=== PATIENT | female | born 1990 | race Caucasian/White ===

== ENCOUNTER → 2018-07-23 09:47 | Outpatient (CLI) | payer OTHER, SELFPAY ==
--- NOTE | 2018-07-23 | DI.US.S_ITS ---
PROCEDURE: US OB >= 14 WEEKS FETUS INDICATIONS: ULTRASOUND 14 WK GESTATION OUTSIDE/PRIOR DATING DATA: Last menstrual period (LMP): Not provided. LMP-based estimated date of delivery (SYBIL): N./A.. First dating scan (date and location): 07/23/18. Estimated date of delivery (SYBIL) from first dating scan: 12/13/18. TECHNIQUE: Real-time scanning was performed of the fetuses, with image documentation and biometric measurements. Endovaginal scanning: No COMPARISON: [facility], [place], OB TWINS < 14 WEEKS, 07/12/2018, 9:20. FINDINGS: General: An intrauterine dichorionic-diamniotic twin is present, as evidenced by separate placentas, differing sexes, or an intervening membrane of greater than 2 mm. Amniotic fluid index (composite): Not obtained. Maternal cervical canal: 5.8 cm long. Normal lower limit is 2.5 cm. FETUS A: Fetus is vertex in presentation. Largest amniotic fluid pocket: 5.8 cm; normal range is 2-8 cm. Placental position is anterior, without previa. heart rate: 144 beats per minute. biometrics: Biparietal diameter: 20 weeks 1 day Head circumference: 20 weeks 0 days Abdominal circumference: 20 weeks 1 day Femur length: 19 weeks 1 day Estimated gestational age from initial scan: not applicable. Composite gestational age from present scan: 19 weeks 5 days Estimated weight and percentile: 307 g; 28 percentile Measurement variability for biometric dating: +/- 7 days from 14 weeks to 15 weeks 6 days gestation, +/- 10 days from 16 weeks to 21 weeks 6 days gestation, +/- 2 weeks from 22 weeks to 27 weeks 6 days gestation, +/- 3 weeks for 28 weeks gestation or later. weight reference: 4500 g or EFW >90/95% is considered macrosomia or large for gestational age. EFW <10% is small for gestational age. EFW 5% or less is considered intra-uterine growth restriction. Anatomic survey: Neuro: Ventricles are normal at less than 10 mm. Cisterna magna is normal at 3-11 mm. Cerebellum is normal in size and morphology. Nuchal skin fold: Normal at less than 6 mm between 14 and 21 weeks gestational age. Face: Nose and lips, facial profile are normal. Spine: No evidence for spina bifida. Heart: 4 chambered heart is present, with normal ventricular outflow tracts. Left ventricular intracardiac focus. Diaphragm: Diaphragm is intact. Stomach: Left-sided stomach is present. Kidneys: Right renal pelvis measures 5 mm and normal left kidney. Normal ranges are less than 5 mm in 2nd trimester, less than 7 mm in 3rd trimester. Cord: 3 vessel cord has orthotopic insertion. Bladder: Normal in size. Extremities: All 4 extremities are visualized. FETUS B: Fetus is transverse position. Largest amniotic fluid pocket: 5.3 cm; normal range is 2-8 cm. Placental position is posterior, without previa. heart rate: 141 beats per minute. biometrics: Biparietal diameter: 19 weeks 5 days Head circumference: 20 weeks Abdominal circumference: 19 weeks 5 days Femur length: 19 weeks 2 days Estimated gestational age from initial scan: not applicable. Composite gestational age from present scan: 19 weeks 4 days Estimated weight and percentile: 90 g; 22nd percentile Measurement variability for biometric dating: +/- 7 days from 14 weeks to 15 weeks 6 days gestation, +/- 10 days from 16 weeks to 21 weeks 6 days gestation, +/- 2 weeks from 22 weeks to 27 weeks 6 days gestation, +/- 3 weeks for 28 weeks gestation or later. weight reference: 4500 g or EFW >90/95% is considered macrosomia or large for gestational age. EFW <10% is small for gestational age. EFW 5% or less is considered intra-uterine growth restriction. Anatomic survey: Neuro: Ventricles are normal at less than 10 mm. Cisterna magna is normal at 3-11 mm. Cerebellum is normal in size and morphology. Nuchal skin fold: Normal at less than 6 mm between 14 and 21 weeks gestational age. Face: Not well-seen. Spine: No evidence for spina bifida. Heart: 4 chambered heart is present, with normal ventricular outflow tracts. Diaphragm: Diaphragm is intact. Stomach: Left-sided stomach is present. Kidneys: No hydronephrosis. Normal ranges are less than 5 mm in 2nd trimester, less than 7 mm in 3rd trimester. Cord: 3 vessel cord has orthotopic insertion. Marginal placental cord insertion 1 cm from the placental edge Bladder: Normal in size. Extremities: All 4 extremities are visualized. IMPRESSION: 1. Diamniotic dichorionic living twin with composite age for fetus A of 19 weeks 5 days and 19 weeks 4 days for fetus B corresponding to ultrasound SYBIL of 12/13/18. 2. Echogenic intracardiac focus involving fetus A: 1.4-1.8 fold likelihood of Down syndrome. If isolated finding, consider aneuploidy screening with cell-free DNA. If aneuploidy screen is negative, no further evaluation needed. Otherwise, there is mild pyelectasis of the right renal pelvis involving fetus A and followup is recommended. 3. face not well visualized for fetus B and marginal cord insertion site is noted. Followup recommended. 1. Dictated by: Yomi CHOUDHURY Interpreted: Nedra Pagan MD on 07/24/2018 at 13:44 Approved by: Nedra Pagan M.D. on 07/24/2018 at 17:20
== END ==
PROVIDERS: Visit Provider Specialist
DX: O30.042 Twin pregnancy, dichorionic/diamniotic, second trimester (principal); Z3A.19 19 weeks gestation of pregnancy
CPT/HCPCS: 76811; 76812

== ENCOUNTER → 2018-09-03 09:40 | Outpatient (CLI) | payer OTHER, SELFPAY ==
[2018-09-03 11:54] LABS: Hematocrit 34.9 % (36-46); Hemoglobin 12.2 g/dL (12.0-16.0)
[2018-09-03 12:19] LABS: GTT (PREG) 1 Hour PP 50gm Dose 103 mg/dL (76-139)
[2018-09-05 21:54] LABS: Hep C Virus Ab w/Reflex Quant NEGATIVE s/c (NEGATIVE)
== END ==
PROVIDERS: Visit Provider Specialist
DX: Z34.02 Encounter for supervision of normal first pregnancy, second trimester (principal); Z3A.26 26 weeks gestation of pregnancy
CPT/HCPCS: 36415; 82950; 85014; 85018; 86787; 86803

== ENCOUNTER 2018-10-19 14:54 | Outpatient (CLI) | payer OTHER, SELFPAY ==
--- NOTE | 2018-10-19 15:54 | PM.OBTRLD ---
Visit Information Visit Information Date of evaluation: 10/19/18 Reason for Evaluation: Yes non-stress test non-stress test reason: other (Thirty-two week twin gestation) PFSH Social History Smoking Status: Never smoker Social History Smoking Status: Never smoker Evaluation Evaluation Baseline heart rate: 140 (both) Variability: Moderate (11-25) (both) monitor accelerations: Present (both) monitor decelerations: Absent (both) Uterine Contraction Intensity: Mild Category of Tracing: I Cervical dilation (cm): 0 Cervical effacement (%): 0 station: -4 Diagnosis, Plan/Disposition Final Diagnosis (1) Dichorionic diamniotic twin in third trimester: Current Visit: Yes Status: Acute Plan/Disposition Plan: Weekly biophysical profiles OB Disposition: home
== END 2018-10-19 15:55 | disposition home or self-care (01) ==
LOC: LABOR 15:25 → OB 10-24 13:59
PROVIDERS: Visit Provider Specialist
DX: O30.003 Twin pregnancy, unspecified number of placenta and unspecified number of amniotic sacs, third trimester (principal); O30.043 Twin pregnancy, dichorionic/diamniotic, third trimester; Z3A.32 32 weeks gestation of pregnancy
CPT/HCPCS: 59025; G0378; G0379

== ENCOUNTER 2018-10-26 14:03 | Outpatient (CLI) | payer OTHER, SELFPAY ==
--- NOTE | 2018-10-26 15:11 | PM.OBTRLD ---
Visit Information Visit Information Date of evaluation: 10/26/18 Primary OB Provider: Flower Quiñones Reason for Evaluation: Yes non-stress test non-stress test reason: other (twins) [facility] Social History Smoking Status: Never smoker Social History Smoking Status: Never smoker Evaluation Evaluation Baseline heart rate: 145 (both) Variability: Moderate (11-25) (both) monitor accelerations: Present (both) monitor decelerations: Absent (both) Contraction Frequency (minutes): 0 Diagnosis, Plan/Disposition Final Diagnosis (1) Dichorionic diamniotic twin in third trimester: Current Visit: Yes Status: Acute (2) 33 weeks gestation of : Current Visit: Yes Status: Acute Plan/Disposition Plan: Continue weekly nonstress tests and ultrasounds OB Disposition: home
--- NOTE | 2018-10-26 15:14 | P.TNLD_ITS ---
Visit Information Visit Information Date of evaluation: 10/26/18 Primary OB Provider: Flower Quiñones Reason for Evaluation: Yes non-stress test non-stress test reason: other (twins) COUNTS INCLUDE 234 BEDS AT THE [facility] Social History Smoking Status: Never smoker Social History Smoking Status: Never smoker Evaluation Evaluation Baseline heart rate: 145 (both) Variability: Moderate (11-25) (both) monitor accelerations: Present (both) monitor decelerations: Absent (both) Contraction Frequency (minutes): 0 Diagnosis, Plan/Disposition Final Diagnosis (1) Dichorionic diamniotic twin in third trimester: Current Visit: Yes Status: Acute (2) 33 weeks gestation of : Current Visit: Yes Status: Acute Plan/Disposition Plan: Continue weekly nonstress tests and ultrasounds OB Disposition: home
== END 2018-10-26 15:16 | disposition home or self-care (01) ==
LOC: LABOR 14:22 → OB 10-30 08:21
PROVIDERS: Visit Provider Specialist
DX: O30.043 Twin pregnancy, dichorionic/diamniotic, third trimester (principal); Z3A.33 33 weeks gestation of pregnancy
CPT/HCPCS: 59025; G0378; G0379

== ENCOUNTER 2018-11-02 09:35 | Outpatient (CLI) | payer OTHER, SELFPAY ==
--- NOTE | 2018-11-02 10:21 | P.TNLD_ITS ---
Visit Information Visit Information Date of evaluation: 11/02/18 Primary OB Provider: Flower Quiñones Reason for Evaluation: Yes non-stress test non-stress test reason: other (twins 34 weeks) [facility] Social History Smoking Status: Never smoker Social History Smoking Status: Never smoker Evaluation Evaluation Baseline heart rate: 130 (140) Variability: Moderate (11-25) (both) monitor accelerations: Present (both) monitor decelerations: Absent (both) Contraction Frequency (minutes): 0 Category of Tracing: I (both) Diagnosis, Plan/Disposition Final Diagnosis (1) Dichorionic diamniotic twin in third trimester: Current Visit: No Status: Acute (2) 34 weeks gestation of : Current Visit: Yes Status: Acute Plan/Disposition Plan: Weekly visits and nonstress tests OB Disposition: home
== END 2018-11-02 10:25 | disposition home or self-care (01) ==
LOC: LABOR 09:44 → OB 11-06 13:07
PROVIDERS: Visit Provider Specialist
DX: O30.043 Twin pregnancy, dichorionic/diamniotic, third trimester (principal); Z3A.34 34 weeks gestation of pregnancy
CPT/HCPCS: 59025; G0378; G0379

== ENCOUNTER 2018-11-09 13:20 | Observation (INO) | payer OTHER, SELFPAY ==
--- NOTE | 2018-11-09 14:29 | PM.OBTRLD ---
Visit Information Visit Information Date of evaluation: 11/09/18 Primary OB Provider: Flower Quiñones Reason for Evaluation: Yes non-stress test non-stress test reason: hypertension/pre-eclampsia Vital Signs Vital Signs: Blood pressure 139/90 [facility] Social History Smoking Status: Never smoker Social History Smoking Status: Never smoker Evaluation Evaluation Baseline heart rate: 125 (Twin B 140) Variability: Moderate (11-25) (both) monitor accelerations: Present (both) monitor decelerations: Absent (both) Contraction Frequency (minutes): 5 Uterine Contraction Intensity: Mild Category of Tracing: I (both) Diagnosis, Plan/Disposition Final Diagnosis (1) Dichorionic diamniotic twin in third trimester: Current Visit: No Status: Acute (2) 35 weeks gestation of : Current Visit: Yes Status: Acute (3) Hypertension affecting in third trimester: Current Visit: Yes Status: Acute Plan/Disposition Plan: We will check PIH labs OB Disposition: other (Patient sent office for office visit)
--- NOTE | 2018-11-09 14:32 | P.TNLD_ITS ---
Visit Information Visit Information Date of evaluation: 11/09/18 Primary OB Provider: Flower Quiñones Reason for Evaluation: Yes non-stress test non-stress test reason: hypertension/pre-eclampsia Vital Signs Vital Signs: Blood pressure 139/90 [facility] Social History Smoking Status: Never smoker Social History Smoking Status: Never smoker Evaluation Evaluation Baseline heart rate: 125 (Twin B 140) Variability: Moderate (11-25) (both) monitor accelerations: Present (both) monitor decelerations: Absent (both) Contraction Frequency (minutes): 5 Uterine Contraction Intensity: Mild Category of Tracing: I (both) Diagnosis, Plan/Disposition Final Diagnosis (1) Dichorionic diamniotic twin in third trimester: Current Visit: No Status: Acute (2) 35 weeks gestation of : Current Visit: Yes Status: Acute (3) Hypertension affecting in third trimester: Current Visit: Yes Status: Acute Plan/Disposition Plan: We will check PIH labs OB Disposition: other (Patient sent office for office visit)
== END 2018-11-09 14:05 | disposition home or self-care (01) ==
PROVIDERS: Admitting Provider Specialist; PCP Specialist; Visit Provider Specialist
DX: O30.043 Twin pregnancy, dichorionic/diamniotic, third trimester (principal); Z3A.35 35 weeks gestation of pregnancy; O16.3 Unspecified maternal hypertension, third trimester
CPT/HCPCS: 59025; G0378; G0379

== ENCOUNTER → 2018-11-09 14:43 | Outpatient (CLI) | payer OTHER, SELFPAY ==
[2018-11-10 14:39] LABS: Strep Grp B PCR POS for Grp B Strep
== END ==
PROVIDERS: PCP Specialist; Visit Provider Specialist
DX: O30.043 Twin pregnancy, dichorionic/diamniotic, third trimester (principal); Z3A.35 35 weeks gestation of pregnancy; O16.3 Unspecified maternal hypertension, third trimester
CPT/HCPCS: 87653

== ENCOUNTER → 2018-11-09 15:00 | Outpatient (CLI) | payer OTHER, SELFPAY ==
[2018-11-09 15:35] LABS: Add Manual Diff / Slide Review NO; Basophils Absolute Auto 0 /uL (0-100); Basophils Percent Auto 0.4 % (0-2); Eosinophils Absolute Auto 100 /uL (0-450); Eosinophils Percent Auto 0.6 % (2-4); Hematocrit 33.5 % (36-46); Hemoglobin 11.2 g/dL (12.0-16.0); Lymphocytes Absolute Auto 2700 /uL (1100-4500); Lymphocytes Percent Auto 26.4 % (25-40); Mean Corpuscular HGB Conc 33.5 % (30-36); Mean Corpuscular Hemoglobin 27.7 PG (26-34); Mean Corpuscular Volume 82.7 fL (80-100); Monocytes Absolute Auto 800 /uL (0-900); Monocytes Percent Auto 7.7 % (3-14); Neutrophils Absolute Auto 6700 /uL (1500-7000); Neutrophils Percent Auto 64.9 % (50-75); Platelet Count 114 X10^3/uL (150-400); Red Blood Cell Count 4.05 X10^6/uL (4.0-5.2); Red Cell Distribution Width 14.8 % (11.6-14.8); White Blood Cell Count 10.4 X10^3/uL (4.5-11.0)
[2018-11-09 15:42] LABS: Alanine Aminotransferase 17 IU/L (9-52); Aspartate Aminotransferase 30 IU/L (14-36); BUN Creatinine Ratio 21.3 (6-22); Blood Urea Nitrogen 17 mg/dL (7-17); Estimated Glomerular Filt Rate > 60.0 mL/min (>60); Uric Acid 7.9 mg/dL (2.5-6.2)
== END ==
PROVIDERS: PCP Specialist; Visit Provider Specialist
DX: O16.3 Unspecified maternal hypertension, third trimester (principal)
CPT/HCPCS: 36415; 82565; 84450; 84460; 84520; 84550; 85025

== ENCOUNTER 2018-11-09 18:03 | Inpatient (IN) | payer OTHER, SELFPAY ==
--- NOTE | 2018-11-09 18:29 | PM.OBHP.1 ---
OB HPI Date/Time Date of admission: 11/09/18 Date Patient Seen: 11/09/18 Time Patient Seen: 18:29 History of Present Condition Chief complaint: [id number] : 1 Para: 0 Estimated Date of Delivery: 12/10/18 Estimated Gestational Age (weeks): 35 Narrative: Mary Jo Ahuja is a 28 year old female with dichorionic diamniotic twins in breech/breech presentation developing preeclampsia Indications Operative indications ( section): multiple gestation Other reason(s) for admission: Mild preeclampsia History of Present care: good care, initiated at week # (13), number of visits (12) and pounds weight gain (66) Dating criteria: other (Intrauterine insemination) Abnormal ultrasound findings: Echogenic intracardiac focus fetus A with mild pyelectasis on the right Obstetrical complications: preeclampsia Medical complications: none Preadmission Labs Blood type: O (+) positive -: Antibody screen: negative, HBsAG: negative, HIV: negative and RPR/VDLR: negative -: Chlamydia screen: not detected and Gonorrhea screen: not detected -: Rubella: immune and Varicella: immune HCAB: negative PAP: Normal 1 hr GTT: 103 Evaluation Evaluation Baseline heart rate: 125 (140 twin B) Variability: Moderate (11-25) (both) monitor accelerations: Present (both) monitor decelerations: Absent (both) Uterine Contraction Intensity: Mild Category of Tracing: I Cervical dilation (cm): 0 Cervical effacement (%): 0 station: -3 PFS Social History Smoking Status: Never smoker Social History Smoking Status: Never smoker Meds Home Medications Medication Instructions Recorded Confirmed Type 1 tab PO DAILY 05/29/18 05/29/18 History vitamin,calcium,zdhlscal-vceh-pfktc acid tablet breast pump #1 each 10/12/18 Rx Allergies Allergy/AdvReac Type Severity Reaction Status Date / Time No Known Drug Allergies Allergy Unverified 05/29/18 15:38 Review of Systems Review of Systems Patient denies headaches, scotomata, epigastric pain. All systems reviewed & are unremarkable except as noted in HPI and below Exam Vital Signs (past 8 hours): 150/92 Narrative Exam Narrative: HEENT exam within normal limits. Lungs are clear to auscultation and percussion. Heart is regular rate and rhythm no S3-S4 or murmurs. Abdomen is soft, nontender. Babies are breech/breech. Extremities with +3 edema and DTRs are brisk with a couple beats of clonus. Objective Labs Labs: Urine dip 3+ proteinuria Assessment and Plan Assessment and Plan Assessment and Plan narrative: 35 4/7week dichorionic/diamniotic twin gestation in breech/breech presentation with beginnings of preeclampsia decision was made to proceed with section.
--- NOTE | 2018-11-09 18:41 | P.HPOB_ITS ---
OB HPI Date/Time Date of admission: 11/09/18 Date Patient Seen: 11/09/18 Time Patient Seen: 18:29 History of Present Condition Chief complaint: [id number] : 1 Para: 0 Estimated Date of Delivery: 12/10/18 Estimated Gestational Age (weeks): 35 Narrative: Mary Jo Ahuja is a 28 year old female with dichorionic diamniotic twins in breech/breech presentation developing preeclampsia Indications Operative indications ( section): multiple gestation Other reason(s) for admission: Mild preeclampsia History of Present care: good care, initiated at week # (13), number of visits (12) and pounds weight gain (66) Dating criteria: other (Intrauterine insemination) Abnormal ultrasound findings: Echogenic intracardiac focus fetus A with mild pyelectasis on the right Obstetrical complications: preeclampsia Medical complications: none Preadmission Labs Blood type: O (+) positive -: Antibody screen: negative, HBsAG: negative, HIV: negative and RPR/VDLR: negative -: Chlamydia screen: not detected and Gonorrhea screen: not detected -: Rubella: immune and Varicella: immune HCAB: negative PAP: Normal 1 hr GTT: 103 Evaluation Evaluation Baseline heart rate: 125 (140 twin B) Variability: Moderate (11-25) (both) monitor accelerations: Present (both) monitor decelerations: Absent (both) Uterine Contraction Intensity: Mild Category of Tracing: I Cervical dilation (cm): 0 Cervical effacement (%): 0 station: -3 PFS Social History Smoking Status: Never smoker Social History Smoking Status: Never smoker Meds Home Medications Medication Instructions Recorded Confirmed Type 1 tab PO DAILY 05/29/18 05/29/18 History vitamin,calcium,tqzagogx-hevk-bgliv acid tablet breast pump #1 each 10/12/18 Rx Allergies Allergy/AdvReac Type Severity Reaction Status Date / Time No Known Drug Allergies Allergy Unverified 05/29/18 15:38 Review of Systems Review of Systems Patient denies headaches, scotomata, epigastric pain. All systems reviewed & are unremarkable except as noted in HPI and below Exam Vital Signs (past 8 hours): 150/92 Narrative Exam Narrative: HEENT exam within normal limits. Lungs are clear to auscultation and percussion. Heart is regular rate and rhythm no S3-S4 or murmurs. Abdomen is soft, nontender. Babies are breech/breech. Extremities with +3 edema and DTRs are brisk with a couple beats of clonus. Objective Labs Labs: Urine dip 3+ proteinuria Assessment and Plan Assessment and Plan Assessment and Plan narrative: 35 4/7week dichorionic/diamniotic twin gestation in breech/breech presentation with beginnings of preeclampsia decision was made to proceed with section.
--- NOTE | 2018-11-09 18:51 | PM.PREOP ---
Pre-operative Note Interval Note History & Physical reviewed/Exam performed by Physician: Yes Changes to H&P: No
[2018-11-09] MEDS: LACTATED RINGERS 1,000 ML 100 ML IV ×3 (18:52→22:39)
[2018-11-09] MEDS: CITRIC ACID/SODIUM CITRATE 15 ML SOLUTION 30 ML PO (18:52)
--- NOTE | 2018-11-09 19:01 | SUR.OPER ---
Supine on Padded OR bed, head on pillow, safety belt at thigh, arms secured on padded arm boards at <90 degrees abduction. Bump under right buttock. Legs uncrossed with pillow under knees, gel pad to heels, tape over blanket to lower legs.
[2018-11-09 19:11] VITALS: BP 133/85
[2018-11-09] MEDS: CEFAZOLIN 2 GM/100 ML FROZ.PIGGY IV (19:20)
[2018-11-09] MEDS: FAMOTIDINE 20 MG/50 ML PIGGYBACK 200 MG IV (19:30)
--- NOTE | 2018-11-09 19:52 | SUR.OPER ---
FHT FOR BABY A 123 AFTER SPINAL, BABY B 127. VIABLE BABY A BORN AT 1937, VIABLE BABY B BORN AT 1937
[2018-11-09 20:15] VITALS: BP 189/124; PULSE 91; RESP 15; TEMP 36.4; O2SAT 97
[2018-11-09 20:20] VITALS: BP 106/76; PULSE 87; RESP 15; TEMP 36.4; O2SAT 99
[2018-11-09 20:25] VITALS: BP 106/78; PULSE 88; RESP 14; TEMP 36.4; O2SAT 98
--- NOTE | 2018-11-09 20:28 | P.OP_ITS ---
Operative Date/Time/Diagnoses Date of procedure: 11/09/18 Time of procedure: 20:21 Pre-op diagnosis: 35w4d twin gestation in breech breech presentation with preeclampsia Post-op diagnosis: same Procedure & Clinicians Procedure: Primary low-transverse section Same procedure as scheduled: Yes Indications: Breech/breech twins with preeclampsia at 35 w4d Surgeon: Flower Quiñones Round Up Ring Hand: Binh Lockwood Yes if Unassisted: No Anesthesia Type: Spinal Operative Notes Findings: Viable male infants, baby a Apgars 8 and 8 weighing 5 lb 4.7 oz, baby B Apgars 8 and 8 weighing 4 lb 11.8 oz, normal tubes, slightly enlarged multi- cystic ovaries bilaterally, normal uterus Closure Type: primary Specimen(s): none sent Applied: catheter (Edouard) Estimated Blood Loss (mL): 350 Blood products transfused: none Procedure in detail: The patient was brought to the operating room where she underwent a spinal for anesthesia. She was placed in a supine position with a left lateral tilt. A Edouard catheter was placed. Pulsatile stockings were placed and functional throughout the case. 2 g of Ancef were given IV prior to the incision. Warming was in place. The patient was prepped and draped in usual sterile fashion. A low transverse incision was made with a scalpel and the incision was carried down to the fascial layer which was incised transversely with scissors. The midline attachments are superiorly and inferiorly. Some bleeding was controlled Bovie. The rectus muscles were in the midline and the peritoneal incision was made with no damage to internal structures. The peritoneum was incised and superiorly and inferiorly. Bladder blade was placed and a bladder flap was developed and the bladder held away from the lower uterine segment. An incision was made in the uterus with the scalpel and the incision was extended with stretching. The feet of twin a were grasped and the baby was delivered and bulb suction for clear fluid. The 2nd amniotic fluid sac was ruptured and the feet were grasped and the baby delivered. The infant was bulb suctioned for clear fluid and handed off to the warmer. Cord blood was collected. The placentas delivered spontaneously with traction. The uterus was cleaned with clean laps. The uterine incision was closed in 2 layers of 0 chromic suture the first a running locking layer the second an imbricating layer. The bladder peritoneum was repaired with 2-0 Polysorb suture. The gutters were cleaned of any remaining fluids and ovaries and tubes were observed to be normal. Adequate hemostasis was noted. The perineum was closed with 2-0 Polysorb suture. The fascia layer was closed with 0 Polysorb suture with 2 stitches. The incision was irrigated and adequate hemostasis noted. The incision was closed with interrupted 3-0 Polysorb sutures and then a subcuticular stitch of 4-0 Polysorb suture. Steri-Strips were placed. The uterus was massaged to remove any clots. The patient went to recovery room in good condition. Counts of instruments and sponges were correct. Complications: none Condition: stable Disposition: Acute Care ( Center) Plan for aftercare: Routine post section care with close monitoring for worsening preeclampsia
[2018-11-09] MEDS: ACETAMINOPHEN IV 1,000 MG/100 ML VIAL 400 MG IV (20:29)
[2018-11-09 20:35] VITALS: BP 115/80; PULSE 84; RESP 14; TEMP 36.4; O2SAT 99
[2018-11-09] MEDS: miSOPROStol 200 MCG TABLET 800 MCG PR (21:20)
[2018-11-09] MEDS: CARBOPROST 250 MCG/ML AMPUL IM (21:20)
[2018-11-10] MEDS: KETOROLAC 30 MG/ML VIAL IV ×3 (02:00→14:35)
[2018-11-10 05:22] LABS: Aspartate Aminotransferase 48 IU/L (14-36); BUN Creatinine Ratio 18.8 (6-22); Blood Urea Nitrogen 15 mg/dL (7-17); Estimated Glomerular Filt Rate > 60.0 mL/min (>60)
[2018-11-10 05:26] LABS: Basophils Absolute Auto 100 /uL (0-100); Basophils Percent Auto 0.4 % (0-2); Eosinophils Absolute Auto 0 /uL (0-450); Eosinophils Percent Auto 0.1 % (2-4); Hematocrit 28.1 % (36-46); Hemoglobin 9.1 g/dL (12.0-16.0); Lymphocytes Absolute Auto 2300 /uL (1100-4500); Lymphocytes Percent Auto 15.2 % (25-40); Mean Corpuscular HGB Conc 32.6 % (30-36); Mean Corpuscular Hemoglobin 27.1 PG (26-34); Mean Corpuscular Volume 83.2 fL (80-100); Monocytes Absolute Auto 1300 /uL (0-900); Monocytes Percent Auto 8.8 % (3-14); Neutrophils Absolute Auto 11200 /uL (1500-7000); Neutrophils Percent Auto 75.5 % (50-75); Platelet Count 105 X10^3/uL (150-400); Red Blood Cell Count 3.37 X10^6/uL (4.0-5.2); Red Cell Distribution Width 14.6 % (11.6-14.8); White Blood Cell Count 14.8 X10^3/uL (4.5-11.0)
[2018-11-10 05:47] LABS: Add Manual Diff / Slide Review SLIDE REVIEW
[2018-11-10 06:28] LABS: Polychromasia 1+
[2018-11-10 08:04] VITALS: TEMP 36.8
[2018-11-10] MEDS: DOCUSATE 250 MG CAPSULE PO (08:06)
[2018-11-10] MEDS: FERROUS GLUCONATE 324 MG TABLET PO (08:06)
[2018-11-10] MEDS: PRENATAL VIT,CALC/IRON/FOLIC 1 TABLET 1 TAB PO (08:06)
--- NOTE | 2018-11-10 10:19 | PM.OBPN.1 ---
Subjective - OB Patient comments: no complaints baby status: doing well feeding status: exclusively breast feeding Date Patient Seen: 11/10/18 Time Patient Seen: 10:20 Interval history: Patient is little over 12 hours post section for twin gestation breech/breech presentation and mild preeclampsia. Patient denies any headaches or scotomata and no epigastric pain. Breast-feeding is going well. She has not tried to ambulate yet. Exam Vital Signs (past 8 hours): Blood pressure 129/85, pulse of 88, temperature 99.6?- 11/10/18 08:04 Temperature 98.2 F Oxygen Delivery Method Room Air Narrative Exam Narrative: Abdomen is soft, appropriately tender. Uterus is firm, at U, appropriately tender. Dressing is clean, dry, intact. Lochia is appropriate. Extremities continue to have increased edema and patient has brisk DTRs. Objective Labs Result Diagrams: 11/10/18 04:38 11/10/18 04:38 Labs: Laboratory Results - last 24 hr 11/09/18 11/10/18 11/10/18 15:17 04:38 04:38 WBC 14.8 H RBC 3.37 L Hgb 9.1 L Hct 28.1 L MCV 83.2 MCH 27.1 MCHC 32.6 RDW 14.6 Plt Count 105 L Neut % (Auto) 75.5 H Lymph % (Auto) 15.2 L [place] % (Auto) 8.8 Eos % (Auto) 0.1 L Baso % (Auto) 0.4 Neut # (Auto) 58942 H Lymph # (Auto) 2300 [place] # (Auto) 1300 H Eos # (Auto) 0 Baso # (Auto) 100 Plt Morphology Comment . RBC Morphology See below Polychromasia 1+ H BUN 15 Creatinine 0.80 Estimated GFR > 60.0 BUN/Creatinine Ratio 18.8 AST 48 H Blood Type O Positive Antibody Screen Negative Assessment & Plan (1) Delivery by section for breech presentation: Problem details: Patient is doing well post section routine post section care Status: Acute Current Visit: Yes (2) Pre-eclampsia affecting childbirth: Status: Acute Assessment and plan: Patient is doing well. She will be monitored for improvement of her preeclampsia symptoms. Otherwise routine post section care Current Visit: Yes Plan day: 1 plan OB: routine postop care Time Spent With Patient Total time spent is greater than 50% in coordination of care (as documented) at patient's floor/unit and/or counseling patient: less than 15 minutes
[2018-11-10 11:35] VITALS: TEMP 36.9
[2018-11-10] MEDS: OXYCODONE/ACETAMINOPHEN 5/325 TABLET 2 TAB PO (11:35)
[2018-11-10 14:35] VITALS: TEMP 36.9
[2018-11-10] MEDS: IBUPROFEN 600 MG TABLET PO (19:55)
[2018-11-11] MEDS: OXYCODONE/ACETAMINOPHEN 5/325 TABLET 2 TAB PO ×4 (01:45→19:41)
[2018-11-11] MEDS: IBUPROFEN 600 MG TABLET PO ×4 (01:46→21:51)
[2018-11-11 05:28] LABS: Add Manual Diff / Slide Review NO; Basophils Absolute Auto 100 /uL (0-100); Basophils Percent Auto 0.4 % (0-2); Eosinophils Absolute Auto 0 /uL (0-450); Eosinophils Percent Auto 0.3 % (2-4); Hematocrit 25.4 % (36-46); Hemoglobin 8.6 g/dL (12.0-16.0); Lymphocytes Absolute Auto 2300 /uL (1100-4500); Lymphocytes Percent Auto 15.6 % (25-40); Mean Corpuscular HGB Conc 33.7 % (30-36); Mean Corpuscular Hemoglobin 27.5 PG (26-34); Mean Corpuscular Volume 81.6 fL (80-100); Monocytes Absolute Auto 900 /uL (0-900); Monocytes Percent Auto 6.4 % (3-14); Neutrophils Absolute Auto 11200 /uL (1500-7000); Neutrophils Percent Auto 77.3 % (50-75); Platelet Count 136 X10^3/uL (150-400); Red Blood Cell Count 3.11 X10^6/uL (4.0-5.2); Red Cell Distribution Width 15.1 % (11.6-14.8); White Blood Cell Count 14.5 X10^3/uL (4.5-11.0)
[2018-11-11 05:39] LABS: Aspartate Aminotransferase 56 IU/L (14-36)
[2018-11-11] MEDS: FERROUS GLUCONATE 324 MG TABLET PO (08:40)
[2018-11-11] MEDS: PRENATAL VIT,CALC/IRON/FOLIC 1 TABLET 1 TAB PO (08:40)
--- NOTE | 2018-11-11 13:28 | PM.OBPN.1 ---
Subjective - OB Patient comments: no complaints, pain well controlled, tolerating diet and flatus present baby status: nursing well [place] feeding status: exclusively breast feeding Date Patient Seen: 11/11/18 Time Patient Seen: 13:28 Interval history: Postoperative day number 2 primary section for breech/breech presentation with mild preeclampsia. Patient denies any headaches, scotomata, epigastric pain. She is ambulatory and urinating well. She is passing gas. Her pain is under control. She is breast-feeding without difficulty. Exam Vital Signs (past 8 hours): Blood pressure 131/84, pulse of 89, temperature 99.6? Oxygen Delivery Method Room Air Narrative Exam Narrative: Patient's abdomen is soft, nontender. Uterus is firm, at U, nontender. Dressing is clean, dry, intact. Mild lochia. Extremities remain with increased edema. No signs of DVT. Objective Labs Result Diagrams: 11/11/18 04:56 11/10/18 04:38 Labs: Laboratory Results - last 24 hr 11/11/18 11/11/18 04:56 04:56 WBC 14.5 H RBC 3.11 L Hgb 8.6 L Hct 25.4 L MCV 81.6 MCH 27.5 MCHC 33.7 RDW 15.1 H Plt Count 136 L Neut % (Auto) 77.3 H Lymph % (Auto) 15.6 L [place] % (Auto) 6.4 Eos % (Auto) 0.3 L Baso % (Auto) 0.4 Neut # (Auto) 42656 H Lymph # (Auto) 2300 [place] # (Auto) 900 Eos # (Auto) 0 Baso # (Auto) 100 AST 56 H Assessment & Plan (1) Delivery by section for breech presentation: Problem details: Patient is doing well post section routine post section care Status: Acute Current Visit: Yes (2) Pre-eclampsia affecting childbirth: Problem details: Stable Status: Acute Current Visit: Yes Plan day: 2 plan OB: routine postop care Comments: Likely home tomorrow if they are doing well. Time Spent With Patient Total time spent is greater than 50% in coordination of care (as documented) at patient's floor/unit and/or counseling patient: less than 15 minutes
--- NOTE | 2018-11-11 13:31 | P.PNOB_ITS ---
Subjective - OB Patient comments: no complaints, pain well controlled, tolerating diet and flatus present baby status: nursing well [place] feeding status: exclusively breast feeding Date Patient Seen: 11/11/18 Time Patient Seen: 13:28 Interval history: Postoperative day number 2 primary section for b reech/breech presentation with mild preeclampsia. Patient denies any headaches, scotomata, epigastric pain. She is ambulatory and urinating well. She is passing gas. Her pain is under control. She is breast-feeding without difficulty. Exam Vital Signs (past 8 hours): Blood pressure 131/84, pulse of 89, temperature 99.6? Oxygen Delivery Method Room Air Narrative Exam Narrative: Patient's abdomen is soft, nontender. Uterus is firm, at U, nontender. Dressing is clean, dry, intact. Mild lochia. Extremities remain with increased edema. No signs of DVT. Objective Labs Result Diagrams: 11/11/18 04:56 11/10/18 04:38 Labs: Laboratory Results - last 24 hr 11/11/18 11/11/18 04:56 04:56 WBC 14.5 H RBC 3.11 L Hgb 8.6 L Hct 25.4 L MCV 81.6 MCH 27.5 MCHC 33.7 RDW 15.1 H Plt Count 136 L Neut % (Auto) 77.3 H Lymph % (Auto) 15.6 L Teller % (Auto) 6.4 Eos % (Auto) 0.3 L Baso % (Auto) 0.4 Neut # (Auto) 05975 H Lymph # (Auto) 2300 Teller # (Auto) 900 Eos # (Auto) 0 Baso # (Auto) 100 AST 56 H Assessment & Plan (1) Delivery by section for breech presentation: Problem details: Patient is doing well post section routine post section care Status: Acute Current Visit: Yes (2) Pre-eclampsia affecting childbirth: Problem details: Stable Status: Acute Current Visit: Yes Plan day: 2 plan OB: routine postop care Comments: Likely home tomorrow if they are doing well. Time Spent With Patient Total time spent is greater than 50% in coordination of care (as documented) at patient's floor/unit and/or counseling patient: less than 15 minutes
[2018-11-12] MEDS: IBUPROFEN 600 MG TABLET PO ×2 (03:26→08:53)
[2018-11-12] MEDS: OXYCODONE/ACETAMINOPHEN 5/325 TABLET 2 TAB PO ×2 (03:27→08:54)
--- NOTE | 2018-11-12 08:07 | P.DS_ITS ---
Discharge Providers Date of admission: 11/09/18 18:03 Discharge Date: 11/12/18 Primary care physician: Flower Quiñones MD Consults: 11/09/18 22:40 Consult to Account Installation Specialist Routine Comment: Discharge provider: Flower Quiñones MD Summary Date Patient Seen: 11/12/18 Time Patient Seen: 08:04 Procedures: Primary low-transverse section Hospital Course: Patient developed mild preeclampsia and had dichorionic diamniotic twin gestation in breech/breech presentation at 35 and half weeks so was admitted for primary section. Patient had mild elevated blood pressures and mild laboratory changes but no other symptoms of preeclampsia. She did well postoperatively. She is ambulatory. She is passing gas and urinating well. Her pain is under control. Patient is without difficulty. She denies any depression. Peripartum Data Infant Delivery Method: Section Procedures: Primary low-transverse section complications: none [place] 1: Gender: Male Disposition of : home 2: Gender: Male Disposition of : home Discharge Diagnosis (1) Delivery by section for breech presentation: Status: Acute Problem Details: Patient is doing well post section routine post section care (2) Pre-eclampsia affecting childbirth: Status: Acute Problem Details: Stable Status at Discharge Cognitive/behavioral status at discharge: oriented Functional status at discharge: independent ambulation Overall status at discharge: patient is progressing back to baseline Time Spent with Patient Total time spent providing and/or coordinating discharge services: Less than 30 minutes Objective Labs Result Diagrams: 11/11/18 04:56 11/10/18 04:38 Exam Vital Signs (past 8 hours): Blood pressure 142/86, pulse of 108, temperature 99.6? Oxygen Delivery Method Room Air Narrative Exam Narrative: Abdomen is soft, nontender. Uterus is firm, at U, appropriately tender. Dressing is clean, dry, intact. Extremities still with edema but no evidence of DVT. Discharge Plan Discharge Plan Patient Disposition: Home Discharge Med Rec/Prescriptions Prescriptions: New oxycodone-acetaminophen 5-325 mg Tablet 2 tab PO Q4HR PRN (Reason: Pain, Severe (7-10)) Qty: 40 RF: 0 ibuprofen 600 mg Tablet 600 mg PO Q6HR PRN (Reason: As Needed For Fever/Mild Pain) Qty: 30 RF: 0 docusate sodium 250 mg Capsule 250 mg PO DAILY Qty: 20 RF: 0 ferrous gluconate 324 mg (38 mg iron) Tablet 324 mg PO DAILY Qty: 30 RF: 0 Continued prenat.vits,helen,ujp-dlwa-ygpte tablet 1 tab PO DAILY RF: 0 No Action breast pump [Lullaby Double Electric Breast] device .ROUTE .MEDSUPPLY Qty: 1 RF: 0 Follow up/Referrals: Flower Quiñones MD [Primary Care Provider] - 1 Month (1 week (or sooner if in with babies) to remove aquacel dressing and check blood pressure) Provider Discharge Instructions Diet: Regular Activity: Nothing in vagina for 4 weeks, do not lift over 20 lb. Skin/Wound/Dressing Care Report to your healthcare provider any signs of infection, such as:: chills, fever, increased pain and unusual redness Dressing: Leave dressing in place until postop visit Discharge Data Primary Care Provider: Flower Quiñones Attending Provider: Flower Quiñones Admit Date/Time: 11/09/18 18:03
[2018-11-12] MEDS: FERROUS GLUCONATE 324 MG TABLET PO (08:57)
[2018-11-12 09:49] VITALS: BP 138/86; PULSE 99; RESP 16; TEMP 37.1
== END 2018-11-12 11:30 | disposition home or self-care (01) | DRG 787 ==
PROVIDERS: Admitting Provider Specialist; PCP Specialist; Visit Provider Specialist
PROC: 10D00Z1 Extraction of Products of Conception, Low, Open Approach (ICD-10-PCS; CPT 59514; principal; 2018-11-09 16:55)
DX: O32.1XX0 Maternal care for breech presentation, not applicable or unspecified (principal); D62 Acute posthemorrhagic anemia; O14.04 Mild to moderate pre-eclampsia, complicating childbirth; Z3A.35 35 weeks gestation of pregnancy; Z37.2 Twins, both liveborn; O30.043 Twin pregnancy, dichorionic/diamniotic, third trimester
CPT/HCPCS: 36415; 59025; 59050; 59200; 59510; 59514; 82565; 84450; 84460; 84520; 84550; 85025; 86850; 86900; 86901; 87653; G0378; G0379; J0131; J0690; J1885; J2274; J2590; S0191

== ENCOUNTER → 2019-12-30 10:43 | Outpatient (CLI) | payer OTHER, SELFPAY ==
--- NOTE | 2019-12-30 10:44 | DI.US.S_ITS ---
ULTRASOUND OF RIGHT BREAST AND AXILLA: 12/30/2019 CLINICAL: Palpable right breast lump. No prior exams were available for comparison. Color flow and real-time ultrasound of the right breast axilla were performed. Hanley scale images of the real-time examination were reviewed. There is a 0.7 cm x 0.4 cm x 0.4 cm oval mass with an indistinct margin in the right breast at 7 o'clock middle depth 4 cm from the nipple and 1 mm from the skin and does not appear to be intradermal. This oval mass is hypoechoic. This correlates as palpated and with area of clinical concern. There are related calcifications. Color flow imaging demonstrates that there is vascularity present. No significant abnormalities were seen sonographically in the right axilla. IMPRESSION: INCOMPLETE: NEEDS ADDITIONAL IMAGING EVALUATION The 0.7 cm x 0.4 cm x 0.4 cm oval mass in the right breast is indeterminate. A diagnostic mammogram is recommended to further evaluate given presence of calcifications. After mammographic evaluation, an ultrasound guided biopsy is recommended given history of recent stopping of breast feeding and no prior symptoms in the area. Findings and recommendations for additional imaging evaluation as well as for subsequent biopsy were discussed with the patient by Dr. Wu during today's visit. This exam was interpreted at Station ID: [id number]. Electronically Signed By: Agapito Stephens M.D. at/:12/30/2019 12:58:18 letter sent: Additional Imaging Needed Ultrasound BI-RADS: 0 Indeterminate
== END ==
PROVIDERS: PCP Specialist; Referring Provider Specialist; Visit Provider Specialist
DX: R92.8 Other abnormal and inconclusive findings on diagnostic imaging of breast (principal); R92.1 Mammographic calcification found on diagnostic imaging of breast; N63.13 Unspecified lump in the right breast, lower outer quadrant
CPT/HCPCS: 76642

== ENCOUNTER → 2020-01-09 08:56 | Outpatient (CLI) | payer OTHER, SELFPAY ==
[2020-01-09 10:17] LABS: HCG Quantitative /Beta subunit 268.8 mIU/mL
== END ==
PROVIDERS: Referring Provider Specialist; Visit Provider Specialist
DX: N91.2 Amenorrhea, unspecified (principal)
CPT/HCPCS: 36415; 84702

== ENCOUNTER → 2020-01-11 09:11 | Outpatient (CLI) | payer OTHER, SELFPAY ==
[2020-01-11 11:36] LABS: HCG Quantitative /Beta subunit 532.9 mIU/mL
== END ==
PROVIDERS: Referring Provider Specialist; Visit Provider Specialist
DX: N91.2 Amenorrhea, unspecified (principal)
CPT/HCPCS: 36415; 84702

== ENCOUNTER → 2020-01-16 09:11 | Outpatient (CLI) | payer OTHER, SELFPAY | PROVIDERS: Referring Provider Specialist; Visit Provider Specialist | DX: N63.10 Unspecified lump in the right breast, unspecified quadrant (principal); Z53.9 Procedure and treatment not carried out, unspecified reason ==

== ENCOUNTER → 2020-01-28 14:24 | Outpatient (CLI) | payer OTHER, SELFPAY ==
--- NOTE | 2020-01-28 | PATH_ITS ---
[facility] Accession Number: [id number] . 01 Material submitted: . breast - RIGHT BREAST 730 [id number] . 02 Diagnosis: Right Breast at 7:30, 4 cm from Nipple, Needle Core Biopsy: Invasive carcinoma of the breast with the following features: . Procedure: Needle biopsy. Specimen Laterality: Right. . Tumor site: 7:30, 4 cm from nipple; lower outer quadrant. Tumor size: At least 8 mm. Histologic type: Invasive carcinoma of no special type (ductal). Histologic grade: Tubule / Glandular: Score 3 of 3 Nuclear Pleomorphism: Score 2 of 3. Mitotic Rate: Score 1 of 3. Overall Grade: Grade 2. Ductal carcinoma in situ: Present. Architectural pattern: Other: Solid / [place]; Cancerization of lobules. Nuclear grade: Grade III (high). Necrosis: Present. Lymphovascular Invasion: Not identified. Additional pathologic findings: Calcifications are present and are associated with ductal carcinoma in situ and invasive tumor. Microcalcifications: Present in DCIS. Ancilllary studies and biomarker studies: Please see microscopic section. MRV 01/31/2020 1515 Local . 02 Comment: This case was reviewed by Dr. Finney on 01/30/2020. . Results discussed with Sharlene Dao on 01/30/20 at approximately 10:40 a.m. . 02 Electronically signed: . Julia Bahena MD, Pathologist NPI- [id number] . 01 Gross description: . Received in formalin and labeled with the patient's name are five pieces of snaon adipose tissue measuring 2.0 x 0.3 x 0.3 to 0.4 x 0.2 x 0.1 cm. Hemorrhagic material is also observed measuring 1.5 x 0.6 x 0.3 cm in aggregate. All five pieces of tissue are entirely submitted in cassette A1. The hemorrhagic material is entirely submitted in aggregate in cassette A2. Collection date and time is listed as 01/28/2020 at 1431 or 2:31 p.m. for a total fixation time of approximately 19 hours. (BJ:[id number]) /MRV 01/29/2020 0908 Local . 02 Microscopic: . Immunohistochemical stains were performed to further evaluate the cells of interest. The controls stained appropriately. . RESULTS Block A1 P63: Absent in regions of interest. Myosin SMMS: Absent in regions of interest. . The absence of both p63 and myosin in the regions of interest supports interpretation of invasive carcinoma at these foci. . . Estrogen Receptor (ER) Status: Positive, approximately 60% of invasive tumor nuclei. Average intensity of staining: Weak to moderate intensity. Primary antibody: SP1 Progesterone Receptor (PgR) Status: Positive, approximately 50% of invasive tumor nuclei. Average intensity of staining: Moderate staining intensity. Primary antibody: 1E2 HER2 (by immunohistochemistry): Positive at 3+. Percentage of cells with uniform intense complete membrane staining: Primary antibody: 4B5 . . Cold Ischemia and Fixation Times: Meets requirements in the latest version of the ASCO/CAP guidelines. Testing performed on Block Number: . TECHNICAL NOTE: The scoring criteria for breast biomarkers by immunohistochemistry is based on the current ASCO/CAP guidelines (Callum et al, Arch Pathol Lab Med 2010: 134(6): 907-922 / Mariano Diaz, Arch Pathol Lab Med 2014: 138(2): 241-256). Deparaffinized sections of formalin fixed tissue (along with appropriate positive controls) are incubated with the above antibody(s). Using the automated Breese stainer, tissue is incubated with the designated antibody* which is then localized by a non-biotin, dual polymer detection system. The external controls are reviewed for appropriate reactivity and found to be adequate. Results on the target cell population are indicated above. These tests have not been validated on decalcified tissue. * This test was developed and its performance characteristics determined by [facility]. It has not been cleared or approved by the U.S. Food and Drug Administration. The FDA has determined that such clearance or approval is not necessary. This test is used for clinical purposes. It should not be regarded as investigational or for research. . . 02 Pathologist provided ICD-10: C50.911 . 02 CPT . 659619, 800748, 645376, 411286, V21652, P60339 Performed at: 01 [facility] [address] [address], [place], [place] [id number] MD John Taylor MD Phone: [phone] Performed at: 02 [facility] [address] [place], [place] [id number] MD Liliya Finney MD Phone: [phone]
--- NOTE | 2020-01-28 14:27 | DI.US.S_ITS ---
ULTRASOUND GUIDED BIOPSY RIGHT BREAST USING VACUUM DEVICE WITH MARKING DEVICE INSERTED: 01/28/2020 CLINICAL: Right brest mass biopsy. PATIENT CONSENT: Risks (minor bleeding, infection, vasovagal reaction and repeat procedure), benefits and alternatives were explained to the patient and written informed consent was obtained. Correlation is made to exam dated: 12/30/2019 [facility]. An ultrasound guided biopsy using real-time ultrasound was performed for the mass located in the right breast at 7 o'clock posterior depth. The skin was prepped in the usual manner. Local anesthetic was administered to the access site. A small incision was made in the breast. The abnormality was approached from the lateral aspect. A biopsy needle was placed adjacent to the abnormality under ultrasound guidance. Once the needle was documented to be in the correct location, six specimens were obtained using the Mammotome biopsy system. A clip was inserted into the biopsy cavity. The specimens were sent to the laboratory for pathological analysis. No mammogram for clip documentation was performed per patient preference () IMPRESSION: ULTRASOUND GUIDED BIOPSY MALIGNANT Ultrasound guided biopsy of the mass in the right breast at 7 o'clock posterior depth was successful. Pathology indicates malignant invasive mammary carcinoma and ductal carcinoma in situ (DCIS). Pathology results are concordant with imaging findings. A surgical/oncologic consultation is recommended. Additionally, recommend obtaining baseline bilateral mammograms given presence of calcifications visualized during diagnostic ultrasound examination and pathology results of concurrent DCIS. The patient is also recently confirmed to be . The radiation dose to the fetus would be minimal and the risks of obtaining a mammogram may be justified given the diagnosis of invasive carcinoma. This can be discussed between the patient and her physician. This exam was interpreted at Station ID: [id number]. Vidal reynoso,aty/:02/04/2020 13:03:12
== END ==
PROVIDERS: Referring Provider Specialist; Visit Provider Specialist
DX: C50.511 Malignant neoplasm of lower-outer quadrant of right female breast (principal); Z17.0 Estrogen receptor positive status [ER+]
CPT/HCPCS: 19083

== ENCOUNTER → 2020-02-07 13:38 | Outpatient (CLI) | payer OTHER, SELFPAY ==
[2020-02-07 14:08] LABS: Specimen Label MYRIAD
[2020-02-07 14:26] LABS: Add Manual Diff / Slide Review NO; Basophils Absolute Auto 0 /uL (0-100); Basophils Percent Auto 0.4 % (0-2); Eosinophils Absolute Auto 100 /uL (0-450); Eosinophils Percent Auto 1.8 % (2-4); Hematocrit 37.3 % (36-46); Hemoglobin 12.9 g/dL (12.0-16.0); Lymphocytes Absolute Auto 2100 /uL (1100-4500); Lymphocytes Percent Auto 26.2 % (25-40); Mean Corpuscular HGB Conc 34.6 % (30-36); Mean Corpuscular Hemoglobin 31.3 PG (26-34); Mean Corpuscular Volume 90.4 fL (80-100); Monocytes Absolute Auto 600 /uL (0-900); Monocytes Percent Auto 7.7 % (3-14); Neutrophils Absolute Auto 5100 /uL (1500-7000); Neutrophils Percent Auto 63.9 % (50-75); Platelet Count 241 X10^3/uL (150-400); Red Blood Cell Count 4.13 X10^6/uL (4.0-5.2); Red Cell Distribution Width 12.9 % (11.6-14.8)
[2020-02-07 21:11] LABS: Hepatitis B Surface Antigen NEGATIVE s/c (NEGATIVE); Rubella Antibody IgG 40.1 IU/mL (>15)
[2020-02-07 21:40] LABS: HIV 1 & 2 Ab/Ag 4th Gen Combo NEGATIVE (NEGATIVE); Hep C Virus Ab w/Reflex Quant NEGATIVE s/c (NEGATIVE)
[2020-02-08 04:36] LABS: RPR Screen Non Reactive (Non Reactive)
[2020-02-08 10:30] LABS: Varicella IgG Antibody 3397 index (Immune >165)
== END ==
PROVIDERS: PCP Specialist; Referring Provider Specialist; Visit Provider Specialist
DX: Z34.91 Encounter for supervision of normal pregnancy, unspecified, first trimester (principal)
CPT/HCPCS: 36415; 80055; 86787; 86803; 86850; 86900; 86901; 87389

== ENCOUNTER 2020-02-15 09:03 | Day surgery (SDC) | payer OTHER, SELFPAY ==
[2020-02-15] VITALS (9 sets, daily range): BP systolic 87–119; BP diastolic 51–78; PULSE 68–86; RESP 14–17; TEMP 36–37.1; O2SAT 98–100; BMI 19.2
--- NOTE | 2020-02-15 | PATH_ITS ---
[facility] Accession Number: [id number] . 01 Material submitted: . product of conception - PRODUCTS OF CONCEPTION . 01 Clinical history: . SDC . 02 Diagnosis: Products of Conception: Chorionic villi present. No evidence of neoplasm. [facility] 02/19/2020 1741 Local . 02 Electronically signed: . Angelo Moyer MD, PhD, Pathologist NPI- [id number] . 01 Gross description: . PRODUCTS OF CONCEPTION: Received in formalin are multiple fragments of hemorrhagic spongy tissue measuring 5.0 x 4.0 x 2.0 cm in aggregate. parts are not identified. Photographic Enlarger Operator sections are submitted in 2 cassettes. /[facility] 02/18/2020 2113 Local . 02 Pathologist provided ICD-10: Z33.3 . 02 CPT . 693483 Performed at: 01 [facility] [address] [id number] MD John Taylor MD Phone: [phone] Performed at: 02 [facility] [address] [address] [place], [place] [id number] MD Liliya Finney MD Phone: [phone]
--- NOTE | 2020-02-15 10:25 | SUR.OPER ---
Lithotomy on padded OR bed, head on pillow, arms secured on padded arm boards at <90 degrees abduction. Legs secured in padded yellow fins stirrups.
[2020-02-15 10:29] LABS: COVID19 -Nasal RAPID Negative (Negative)
[2020-02-15] MEDS: LACTATED RINGERS 1,000 ML 42 ML IV (10:30)
--- NOTE | 2020-02-15 10:30 | PM.HP.1 ---
History of Present Illness History of Present Illness Date Patient Seen: 02/15/20 Time Patient Seen: 10:30 Chief complaint: sdc Narrative: Patient is a 29-year-old 2 para 0 1 1 2 who presents for suction D and C due to a missed . Patient recently diagnosed with breast cancer. At a routine OB visit yesterday there was no heart motion. Patient History Medical History (Updated 02/14/20 @ 11:56 by Flower Quiñones MD) Allergic rhinitis (Acute) Chicken pox (Resolved ~1993) Delivery by section for breech presentation (Inactive) Eczema (Chronic ~1999) Infertility (Inactive ~2017) Irregular menstrual cycle (Chronic ~2005) Pre-eclampsia affecting childbirth (Inactive) Surgical History Anesthesia (Resolved) History of section (Resolved ~11/09/18) [place] teeth removed (Resolved ~03/2005) Family & Social History Family History Father Skin cancer Mother Asthma Grandfather Congestive heart failure Diabetes mellitus History of heart disease Grandmother Congestive heart failure History of heart disease Diabetes mellitus Grandfather Cancer Grandmother Breast cancer Stroke Social History: household members spouse,children lives independently Yes Tobacco & Substance use: Smoking Status Never smoker alcohol intake never Substance Use Type does not use Meds Home Medications and Allergies Home Medications Medication Instructions Recorded Confirmed Type prenat.vits,helen,kil-vvfh-ovtxv 1 tab PO DAILY 01/23/20 02/14/20 History oxycodone-acetaminophen 5 mg-325 2 tab PO Q4-6H PRN #20 tab 02/14/20 02/15/20 Rx mg tablet Allergies Allergy/AdvReac Type Severity Reaction Status Date / Time No Known Drug Allergies Allergy Verified 02/15/20 09:52 Exam Vital Signs (past 8 hours): - 02/15/20 10:19 Temperature 98.1 F Pulse Rate 84 Respiratory Rate 17 Blood Pressure 119/77 Pulse Oximetry 100 Oxygen Delivery Method Room Air Narrative Exam Narrative: HEENT: No thyromegaly, no anterior cervical or supraclavicular lymphadenopathy. Lungs:Clear to auscultation bilaterally, no wheezes. Cardiovascular: Regular rate and rhythm, no murmurs, rubs, or gallops. Abdomen: Well-healed Pfannenstiel scar. No hepatosplenomegaly. No masses palpable. External genitalia: Normal Vagina: Normal Cervix: Normal Bimanual exam: 7 Week size uterus. Mobile. Rectal: No masses. Objective Labs Labs: Laboratory Results - last 24 hr 02/15/20 10:00 COVID-19 PCR Negative Assessment & Plan Assessment and plan (1) Missed ab: Status: Acute (2) Cancer of right breast: Status: Acute Assessment & Plan narrative: Assessment: 29-year-old 2 para 0112 with a missed at 6 weeks Recently diagnosed right-sided breast cancer Plan: Suction D&C The risks, benefits, and alternatives to the procedure were explained to the patient. The risks including bleeding, infection, and uterine perforation. She understands these risks and agrees to proceed. A full par Q was held and consent form was signed. COVID-19 COVID-19 status: Negative Result date/Date tested (Pos, Neg/Pending): 02/15/20 Time Spent With Patient Time with patient: 15-24 minutes
--- NOTE | 2020-02-15 10:32 | PM.PREOP ---
Pre-operative Note COVID-19 COVID-19 status: Negative Result date/Date tested (Pos, Neg/Pending): 02/15/20 Interval Note History & Physical reviewed/Exam performed by Physician: Yes Changes to H&P: No H&P completed within 30 days and has changed as indicated here:: 02/15/20
[2020-02-15] MEDS: ACETAMINOPHEN 325 MG TABLET 975 MG PO (10:35)
[2020-02-15] MEDS: SCOPOLAMINE 1 PATCH TOP (10:36)
--- NOTE | 2020-02-15 11:36 | P.OP_ITS ---
Operative Date/Time/Diagnoses Date of procedure: 02/15/20 Time of procedure: 11:36 Pre-op diagnosis: Spontaneous miscarriage Post-op diagnosis: same Procedure & Clinicians Procedure: Procedures Operation Date: 02/15/20 09:30 Actual Procedures Side Surgeon p Dilation and Curettage-suction Kindra Guajardo MD Indications: Spontaneous miscarriage Missed Right breast cancer Surgeon: Kindra Guajardo Anesthesia Type: General (LMA) Operative Notes Closure Type: not applicable Specimen(s): uterine contents Estimated blood loss (mL): 100 Blood products transfused: none Procedure in detail: After informed consent was obtained, the patient was taken to the operating room where she was placed in the dorsal supine position. After adequate LMA general anesthesia was achieved, she was placed in the dorsal lithotomy position, and prepped and draped in the usual sterile fashion. A time-out was performed. A bimanual exam was performed which revealed an 8 week size anteverted uterus. A bivalve speculum was placed into the vagina and the anterior lip of the cervix grasped with a single-tooth tenaculum. The cervical os was sequentially dilated to the # 7 Hegar dilator. The # 7 plastic curved curette was passed easily into the endometrial cavity. Several passes with suct ion revealed a large amount of tissue and fluid. Several more passes revealed blood only. The plastic curette was removed from the uterus. Sharp curettage was performed yielding a moderate amount of tissue. Several more passes with suction revealed tissue on the 1st pass, and blood only on the 2nd and 3rd pass. The curette was removed from the uterus. The single-tooth tenaculum was removed from the anterior lip of the cervix. There was a minimal amount of bleeding from the cervical os. At the left corner of the introitus from just below the urethral meatus to the introitus sidewall there was a ?bridge? of tissue. This was taken down with cautery. There was also a ?tongue? of tissue coming from the right lower corner of the introitus approximately 1.5 cm long. This was also cauterized at the base for removal. Hemostasis was achieved. Sponge, lap, and instrument counts were correct x2. The patient tolerated the procedure well, and was taken to PACU in stable condition. Complications: none Post-operative Condition: stable Disposition: PACU Plan for aftercare: Home after recovery
== END 2020-02-15 12:21 | disposition home or self-care (01) ==
PROVIDERS: PCP Specialist; Referring Provider Obstetrics & Gynecology; Visit Provider Obstetrics & Gynecology
PROC: (CPT 58120; principal; 2020-02-15 09:30)
DX: O02.1 Missed abortion (principal); C50.911 Malignant neoplasm of unspecified site of right female breast; Z3A.01 Less than 8 weeks gestation of pregnancy; Z11.59 Encounter for screening for other viral diseases
CPT/HCPCS: 59820; 87635; J1100; J1885; J2250; J2405; J2704

== ENCOUNTER → 2020-04-20 11:53 | Outpatient (CLI) | payer OTHER, SELFPAY | PROVIDERS: PCP Specialist; Visit Provider Physician Assistant | DX: J02.9 Acute pharyngitis, unspecified (principal) | CPT/HCPCS: 87070 ==

== ENCOUNTER → 2021-01-30 11:15 | Outpatient (CLI) | payer OTHER, SELFPAY ==
[2021-01-30 13:39] LABS: COVID19 - ADMIT (NP swab/PCR) Negative (Negative)
== END ==
PROVIDERS: PCP Registered Nurse Diabetes Educator; Referring Provider Physician Assistant; Visit Provider Physician Assistant
DX: Z20.822 Contact with and (suspected) exposure to COVID-19 (principal)
CPT/HCPCS: U0003

== ENCOUNTER → 2021-04-08 10:06 | Outpatient (CLI) | payer OTHER, SELFPAY ==
[2021-04-08 11:31] LABS: COVID19 -Nasal RAPID Negative (Negative)
== END ==
PROVIDERS: PCP Registered Nurse Diabetes Educator; Referring Provider Specialist; Visit Provider Specialist
DX: Z01.812 Encounter for preprocedural laboratory examination (principal); Z20.822 Contact with and (suspected) exposure to COVID-19
CPT/HCPCS: 87635; C9803

== ENCOUNTER 2021-04-09 09:57 | Day surgery (SDC) | payer OTHER, SELFPAY ==
[2021-04-09] VITALS (8 sets, daily range): BP systolic 107–124; BP diastolic 59–73; PULSE 82–103; RESP 12–16; TEMP 36.2–36.8; O2SAT 88–100; BMI 18.6
--- NOTE | 2021-04-09 | PATH_ITS ---
[facility] Accession Number: [id number] . 01 Material submitted: . stomach - GASTRIC CARDIA BIOPSY . 02 Diagnosis: Stomach, Biopsies: Gastric antral and body mucosa with minimal chronic inflammation. Negative for Helicobacter organisms by immunohistochemistry. Negative for intestinal metaplasia. Negative for dysplasia or malignancy. V 04/14/2021 1236 Local . 02 Electronically signed: . Angelo Moyer MD, PhD, Pathologist NPI- [id number] . 01 Gross description: . GASTRIC CARDIA BIOPSY: Received in formalin are 4 fragment(s) of sanon, soft tissue measuring 0.4 x 0.2 x 0.2 cm to 0.2 x 0.1 x 0.1 cm submitted entirely in 1 cassette(s) /CHELSEY 04/10/2021 0502 Local . 02 Microscopic: . An immunohistochemical stain was performed to evaluate for Helicobacter organisms and is negative. The control stain showed appropriate reactivity. . * This test was developed and its performance characteristics determined by [facility]. It has not been cleared or approved by the U.S. Food and Drug Administration. The FDA has determined that such clearance or approval is not necessary. This test is used for clinical purposes. It should not be regarded as investigational or for research. . 02 Pathologist provided ICD-10: K29.70 . 02 CPT . 664409, D05119 Performed at: 01 [facility] [address], [place], [place] [id number] MD John Taylor MD Phone: [phone] Performed at: 02 [facility] [place] [address] [place], [place] [id number] MD Liliya Finney MD Phone: [phone]
[2021-04-09] MEDS: LACTATED RINGERS 1,000 ML 200 ML IV (10:27)
--- NOTE | 2021-04-09 10:54 | PM.HP.1 ---
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 She is here to undergo an EGD and a colonoscopy. Patient History Medical History Allergic rhinitis Cancer of right breast (~01/2020) Chicken pox (~1993) Delivery by section for breech presentation Eczema (~1999) Infertility (~2017) Irregular menstrual cycle (~2005) Li-Fraumeni syndrome Missed ab (~02/14/20) Pharyngitis Pre-eclampsia affecting childbirth Surgical History Anesthesia H/O bilateral mastectomy History of section (~11/09/18) [place] teeth removed (~03/2005) Family & Social History Family History Father Skin cancer Mother Asthma Grandfather Congestive heart failure Diabetes mellitus History of heart disease Grandmother Congestive heart failure History of heart disease Diabetes mellitus Grandfather Cancer Grandmother Breast cancer Stroke Social History: household members spouse,children lives independently Yes Tobacco & Substance use: Smoking Status Never smoker alcohol intake never Substance Use Type does not use Meds Home Medications and Allergies Home Medications Medication Instructions Recorded Confirmed Type letrozole 2.5 mg tablet 2.5 mg PO DAILY 01/01/21 03/31/21 History leuprolide [Lupron Depot] IM 01/01/21 03/31/21 History trastuzumab [Herceptin] IV .q 3weeks 02/26/21 03/31/21 History Allergies Allergy/AdvReac Type Severity Reaction Status Date / Time No Known Drug Allergies Allergy Verified 04/09/21 10:08 Review of Systems Review of Systems Narrative: Essentially healthy. No cough cold or asthma. No heart or GI symptoms. No seizures or blackouts. Exam Vital Signs (past 8 hours): - 04/09/21 10:10 Temperature 98 F Pulse Rate 82 Respiratory Rate 16 Blood Pressure 112/59 L Pulse Oximetry 100 Oxygen Delivery Method Room Air Narrative Exam Narrative: Pleasant cooperative patient no apparent distress. Lungs are clear to auscultation. No rales or rhonchi. Heart regular rate and rhythm no murmur gallop. Abdomen is soft nontender without mass. No obvious hernias. Patient is alert and oriented x3. Assessment & Plan Assessment and plan (1) Li-Fraumeni syndrome: Status: Acute Assessment & Plan narrative: Patient here for an EGD and colonoscopy. I have discussed the procedures and the rationale with the patient including risks of bleeding, perforation which would necessitate a major operation, failure to find remove all lesions and the potential to tattoo. She appeared to understand and wished to proceed. Time Spent With Patient Critical Care time: I spent a total of [] minutes of critical care time on this patient's care today; this time is exclusive of procedural time.
--- NOTE | 2021-04-09 10:56 | PM.PREOP ---
Pre-operative Note COVID-19 COVID-19 status: Negative Result date/Date tested (Pos, Neg/Pending): 04/08/21 Interval Note History & Physical reviewed/Exam performed by Physician: Yes Changes to H&P: No ASA Class (for procedural sedation): I
[2021-04-09] MEDS: fentaNYL 250 MCG/5 ML INJ IV (12:07)
[2021-04-09] MEDS: LIDOCAINE 4% SOLN 50 ML 20 ML TOP (12:07)
--- NOTE | 2021-04-09 12:07 | PM.OP.EC ---
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 Post-op diagnosis: same Procedure & Clinicians Study performed: EGD with cold biopsy. Attempted colonoscopy. Same procedure as scheduled: Yes Indications: Patient with Li-Frademini Sndrome Surgeon: Chun Suarez Procedure Notes SCOAP/Timeout: Performed Procedure in detail: The patient had topical anesthetic applied to oropharynx. She was placed in the left lateral decubitus position and underwent IV sedation directed by the surgeon consisting of fentanyl and Versed. A bite block was inserted and the scope was advanced through it into the esophagus. The esophagus was unremarkable. GE junction was noted at 39 cm from the incisors The stomach insufflated well. There were no lesions seen in the body, antrum or at the incisura. The pyloric channel was patent. The duodenum was unremarkable to the 4th part. Scope was brought back into the stomach and retroflexed. The proximal stomach was remarkable for a polypoid lesion in the cardia. It did not appear to be a gastric fundic polyp. I repeatedly biopsied this lesion. The surface was very soft and the mucosal pulled away easily. The scope was straightened and brought out through the esophagus again. No lesions were seen. The scope was removed and the patient tolerated the procedure well. The patient was repositioned. The patient underwent additional IV sedation directed by the surgeon consisting of fentanyl and Versed. Digital exam was unremarkable.. The scope was inserted and advanced through the rectum into the sigmoid, descending, and transverse colon. I reached a point where there was a narrowing and I could not tell if it was from a stricture, external pressure, or 8 twist in the colon. In any event I could not get beyond it without exerting a significant amount of pressure. The patient was repositioned with no improvement in the situation. S as I was only into the colon about 70 cm at thought this highly unlikely to be the cecum and I could not identify anything that looked like it ileocecal valve. Therefore the Scope was gradually brought out. No Polyps were found to that point. The scope ultimately was retroflexed in the rectum. The appearance was normal. The scope was removed and the patient tolerated the procedure well. The prep was excellent. Scope withdrawal time: Not applicable Sedation minutes: 29 Findings: polyp (Gastric) Specimen(s): other (Gastric polyp biopsies) Complications: none Post-procedure Recommendations: Other recommendation (Repeat colonoscopy in EGD in 4 years. Patient will need a barium enema however now to evaluate the unseen portions of her colon.) Plan for aftercare: Schedule barium enema Follow up: as needed Disposition: PACU
[2021-04-09] MEDS: MIDAZOLAM 5 MG/5 ML VIAL IV (12:08)
== END 2021-04-09 13:12 | disposition home or self-care (01) ==
PROVIDERS: PCP Registered Nurse Diabetes Educator; Referring Provider Specialist; Visit Provider Specialist
PROC: 0DJ08ZZ Inspection of Upper Intestinal Tract, Via Natural or Artificial Opening Endoscopic (ICD-10-PCS; CPT 43235; principal; 2021-04-09 10:45)
PROC: 0DJD8ZZ Inspection of Lower Intestinal Tract, Via Natural or Artificial Opening Endoscopic (ICD-10-PCS; CPT 45378; 2021-04-09 10:45)
DX: Z12.11 Encounter for screening for malignant neoplasm of colon (principal); Z15.09 Genetic susceptibility to other malignant neoplasm; Z15.01 Genetic susceptibility to malignant neoplasm of breast; Z53.09 Procedure and treatment not carried out because of other contraindication; K29.50 Unspecified chronic gastritis without bleeding
CPT/HCPCS: 43239; 45378; 99152; 99153; J2250; J3010

== ENCOUNTER → 2021-06-24 13:30 | Outpatient (CLI) | payer OTHER, SELFPAY ==
[2021-06-24 14:27] LABS: COVID19 -Nasal RAPID Negative (Negative)
== END ==
PROVIDERS: PCP Registered Nurse Diabetes Educator; Referring Provider Nurse Practitioner Family; Visit Provider Nurse Practitioner Family
DX: Z20.822 Contact with and (suspected) exposure to COVID-19 (principal)
CPT/HCPCS: 87635

== ENCOUNTER → 2021-10-05 10:07 | Outpatient (CLI) | payer OTHER, SELFPAY ==
--- NOTE | 2021-10-05 10:08 | DI.RAD.S_ITS ---
PROCEDURE: XR CHEST 2V INDICATIONS: atypical chest pain TECHNIQUE: 2 views of the chest were acquired. COMPARISON: None. FINDINGS: Surgical changes and devices: Surgical clips are projected over the right axilla. Lungs and pleura: Lungs are clear. No pleural effusions or pneumothorax. Mediastinum: Mediastinal contours are normal. Heart size is normal. Bones and chest wall: No suspicious bony abnormalities. Soft tissues appear unremarkable. IMPRESSION: No acute cardiopulmonary findings. Dictated by: Caren Parsons M.D. on 10/05/2021 at 11:04 Approved by: Caren Parsons M.D. on 10/05/2021 at 11:05
[2021-10-05 12:03] LABS: Erythrocyte Sedimentation Rate 6 MM/HR (0-20)
[2021-10-05 12:26] LABS: HEMOLYSIS < 15 (0-50)
[2021-10-05 12:28] LABS: Alanine Aminotransferase 22 IU/L (<35); Albumin 4.9 g/dL (3.5-5.0); Albumin Globulin Ratio 1.8 (1.0-2.8); Alkaline Phosphatase 62 U/L (38-126); Aspartate Aminotransferase 29 IU/L (14-36); BUN Creatinine Ratio 16.9 (6-22); Bilirubin Total 0.9 mg/dL (0.2-1.3); Blood Urea Nitrogen 11 mg/dL (7-17); Calcium 9.9 mg/dL (8.4-10.2); Carbon Dioxide 31 mmol/L (22-32); Chloride 104 mmol/L (98-107); Creatine Kinase 114 U/L (30-135); Estimated Glomerular Filt Rate > 60 mL/min (>60); Globulin 2.8 g/dL (1.7-4.1); Glucose 89 mg/dL (70-100); Potassium 4.1 mmol/L (3.4-5.1); Sodium 143 mmol/L (137-145); Total Protein 7.7 g/dL (6.3-8.2)
[2021-10-05 12:50] LABS: Troponin I < 0.012 ng/mL (0.01-0.034)
== END ==
PROVIDERS: PCP Registered Nurse Diabetes Educator; Referring Provider Physician Assistant; Visit Provider Physician Assistant
DX: R07.89 Other chest pain (principal)
CPT/HCPCS: 36415; 71046; 80053; 82550; 84484; 85651

== ENCOUNTER → 2022-03-18 09:38 | Outpatient (CLI) | payer OTHER, SELFPAY | PROVIDERS: PCP Registered Nurse Diabetes Educator; Visit Provider Student in an Organized Health Care Education/Training Program | DX: J02.9 Acute pharyngitis, unspecified (principal) | CPT/HCPCS: 87070; 87077; 87147 ==

== ENCOUNTER → 2022-09-30 10:03 | Outpatient (CLI) | payer OTHER, SELFPAY ==
--- NOTE | 2022-09-30 10:04 | DI.RAD.S_ITS ---
PROCEDURE: XR SACRUM COCCYX MIN 2V INDICATIONS: Tailbone pain TECHNIQUE: 3 views of the sacrum and coccyx acquired. COMPARISON: None. FINDINGS: Bones: No fractures or dislocations. No suspicious bony lesions. Soft tissues: Visualized bowel gas pattern is normal. No suspicious soft tissue densities. An IUD projects in the pelvis. IMPRESSION: Negative sacral/coccygeal radiographic series Dictated by: Agapito Stephens M.D. on 09/30/2022 at 12:30 Approved by: Agapito Stephens M.D. on 09/30/2022 at 12:31
== END ==
PROVIDERS: PCP Registered Nurse Diabetes Educator; Referring Provider Nurse Practitioner Family; Visit Provider Nurse Practitioner Family
DX: M53.3 Sacrococcygeal disorders, not elsewhere classified (principal)
CPT/HCPCS: 72220